=== PATIENT | female | born 1935 | race Caucasian/White ===

== ENCOUNTER → 2019-07-21 13:31 | Outpatient (CLI) | payer MEDICARE, SELFPAY ==
--- NOTE | 2019-07-21 | DI.MRI.S_ITS ---
PROCEDURE: MR CERVICAL SPINE WO CON INDICATIONS: RADICULOPATHY, CERVICAL REGION TECHNIQUE: Noncontrast sagittal T1 spin echo and T2 fast spin echo, sagittal STIR, foraminal oblique sagittal T2 fast spin echo, and axial gradient echo or T2 fast spin echo through the cervical spine. COMPARISON: None. FINDINGS: Image quality: Excellent. Alignment and Curvature: There is normal bony alignment. Bone Marrow: Multilevel degenerative endplate sclerosis and spurring. Diffuse facet arthropathy. No fracture Spinal Cord: Visualized spinal cord has normal size and signal. No cerebellar tonsillar herniation. Paraspinous Soft Tissues: No paravertebral masses. Prevertebral soft tissues are normal in thickness. C2-C3: Normal appearance. C3-C4: Minimal central canal narrowing. Moderate right foraminal stenosis with nerve root compression. Mild to moderate left foraminal narrowing. C4-C5: No high-grade canal stenosis. Mild right foraminal stenosis. Severe left foraminal stenosis C5-C6: Minimal central canal narrowing. Moderate to severe right foraminal stenosis with nerve root compression. Moderate left foraminal narrowing, with nerve root compression C6-C7: Mild central canal narrowing. Severe right foraminal narrowing with nerve root compression. Mild left foraminal stenosis C7-T1: No canal stenosis. Mild left foraminal narrowing. No right foraminal stenosis IMPRESSION: Multilevel cervical spondylosis and facet arthropathy. No high-grade canal stenosis. Diffuse moderate to severe bilateral foraminal narrowing as detailed above by spinal level. Dictated by: Tj Yi M.D. on 07/21/2019 at 15:35 Approved by: Tj Yi M.D. on 07/21/2019 at 15:49
== END ==
PROVIDERS: PCP Family Medicine; Visit Provider Family Medicine
DX: M47.22 Other spondylosis with radiculopathy, cervical region (principal); M48.02 Spinal stenosis, cervical region
CPT/HCPCS: 72141

== ENCOUNTER → 2020-01-05 13:13 | Outpatient (CLI) | payer MEDICARE, SELFPAY ==
--- NOTE | 2020-01-05 | DI.MRI.S_ITS ---
PROCEDURE: MR ABDOMEN WO/W CON INDICATIONS: LIVER MASS TECHNIQUE: Coronal HASTE, axial 2D FLASH in- and [id number]; axial breath-hold T2 FSE. Dynamic axial VIBE during the administration of contrast; post-contrast coronal VIBE or 2D FLASH with fat saturation from the hepatic dome to the iliac crests. Optional diffusion weighted imaging and ADC may be performed. COMPARISON: Merged With [facility], , RENAL COMPLETE, 01/11/2018, 14:44. FINDINGS: Image quality: Excellent. Lung bases: No basal pleural effusions. Heart size is normal. Solid organs: Liver is normal in size and generally normal in enhancement, but there is a mass lesion that is heterogeneously enhancing involving the right posterior hepatic segment inferiorly, measuring up to 4.1 x 4.1 cm, with relative enlargement of vascular structures extending from this mass towards the paolo hepatis. No definite additional liver lesions are found although there are several nonspecific liver findings that are punctate in size, or small and rounded, suggestive of small cysts within the right posterior hepatic segment. No biliary obstruction is seen, no adjacent adenopathy is found. The adrenal glands bilaterally and pancreas appear normal. Pancreas is normal in morphology. Spleen is normal in size and enhancement. Both kidneys demonstrate normal size and enhancement, without hydronephrosis. Nodes and vessels: No retroperitoneal or mesenteric adenopathy by size criteria. Aorta and inferior vena cava are normal in size. Bowel and peritoneum: Unenhanced bowel loops are normal in caliber. No free fluid. Bones and soft tissues: No ventral hernias. Bone marrow is normal in overall signal. IMPRESSION: 4.1 cm diameter right posterior hepatic segment heterogeneously enhancing mass which appears relatively hypervascular given the recruitment of vessels from the paolo hepatis region tracking posteriorly to the margin of the mass. The appearance is nonspecific, and it could represent metastatic disease from a numerous potential etiologies. Clinical history provided indicates that there is prior imaging but not available for review. Additional imaging should be obtained for further reference. The clinical history also may be available that is relevant to this study. Overall nuclear medicine PET CT scanning may be warranted to assess for potential primary neoplasm as cause of this finding. Dictated by: Wilmer Perla M.D. on 01/05/2020 at 16:05 Approved by: Wilmer Perla M.D. on 01/05/2020 at 16:16
== END ==
PROVIDERS: PCP Family Medicine; Referring Provider Family Medicine; Visit Provider Family Medicine
DX: R16.0 Hepatomegaly, not elsewhere classified (principal)
CPT/HCPCS: 74183; A9579